=== PATIENT | female | born 1945 | race Caucasian/White ===

== ENCOUNTER 2017-11-12 07:59 | Outpatient (CLI) | payer MEDICARE ==
--- NOTE | 2017-11-12 10:57 | MRI ---
MRI LEFT HIP WITHOUT CONTRAST: INDICATIONS: History of left hip pain. FINDINGS: There is a near complete full-thickness tear of the left gluteus medius. The anterior mid segment of the tendon is completely torn. The very posterior aspect of the tendon remains intact. There is a partial thickness articular surface tear involving the posterior left gluteus medius tendo n, near the insertion. There is fluid within the sub-gluteus minimus and sub-gluteus medius trochant iris bursae. The rectus femoris and left hamstring origin appears within normal limits. No iliopsoas bursitis is evident. No gross labral tear is demonstrated. No definite paralabral cyst is identified. No joint effusion is evident. No acute fracture is demonstrated. There is mild degenerative change of the s ymphysis pubis. There are left SI joint arthrodesis screws in place. No enlarged lymph nodes are ev ident. There are scattered diverticula involving the colon. There is moderate left gluteus minimus tendinosis. IMPRESSION: 1. Near complete tear of the left gluteus minimus tendon with the posterior aspects of the left glut eus minimus tendon remaining intact. Ninety percent of the tendon is completely torn. 2. Partial thickness articular surface tear involving the posterior gluteus medius near the insertio n. 3. Mild left trochanteric bursitis. 4. Left sacroiliac joint arthrodesis. 5. Colonic diverticulosis. POS: [facility]
== END 2017-11-12 08:00 | disposition home or self-care (01) ==
LOC: SCSMRI 07:59
PROVIDERS: ATTEND Family Medicine
DX: M25.552 Pain in left hip (principal); M70.62 Trochanteric bursitis, left hip; S76.012A Strain of muscle, fascia and tendon of left hip, initial encounter; Z98.1 Arthrodesis status

== ENCOUNTER 2018-03-17 10:58 | Outpatient (CLI) | payer MEDICARE ==
[2018-03-17 12:10] LABS: #Lymphocytes 1.5 thou/uL (1.20-3.40); #Monocytes 0.6 thou/uL (0.11-0.59); #Neutrophils 3.7 thou/uL (1.40-6.50); %Basophils 0.6 % (0.0-1.0); %Eosinophils 0.6 % (0.0-10.0); %Lymphocytes 26.1 % (21.0-51.0); %Monocytes 9.7 % (0.0-10.0); %Neutrophils 63.1 % (42.0-75.0); Hemoglobin 13.1 g/dL (12.0-16.0); Mean Corpuscular HGB CONC 32.1 g/dL (32.0-36.0); Mean Corpuscular Hemoglobin 26.4 pg (27.0-31.0); Mean Corpuscular Volume 82.1 fL (78.0-98.0); Mean Platelet Volume 6.9 fL (7.4-10.4); Platelet Count 364 thou/uL (130-400); RBC Distribution Width 15.3 % (11.5-14.5); Red Blood Cell (RBC) Count 4.98 mill/uL (4.20-5.40); White Blood Cell (WBC) Count 5.9 thou/uL (4.8-10.8)
[2018-03-17 12:33] LABS: ALT (SGPT) 16 U/L (8-55); AST (SGOT) 18 U/L (5-34); Albumin 4.2 g/dL (3.4-4.8); Alkaline Phosphatase 67 U/L (40-150); Anion Gap 13 mmol/L (10-20); BUN (Urea Nitrogen) 16 mg/dL (9.8-20.1); Bilirubin, Total 0.5 mg/dL (0.2-1.2); Calc. Creatinine Clearance 0 mL/min (70-130); Carbon Dioxide 25 mmol/L (23-31); Chloride 105 mmol/L (98-107); Estimated GFR-MDRD 49; Globulin 2.9 g/dL (2.4-3.5); Glucose 107 mg/dL (83-110); Potassium 4.7 mmol/L (3.5-5.1); Protein, Total 7.1 g/dL (6.0-8.3); Sodium 138 mmol/L (136-145)
--- NOTE | 2018-03-17 13:20 | RAD ---
TWO VIEW CHEST: Comparison: 06-05-10 Clinical history: Pre-operative evaluation FINDINGS: There is no evidence of consolidation or effusion. Cardiac silhouette is normal in size. No free air beneath the hemidiaphragms. Osseous degenerative change is present. IMPRESSION: No focal consolidation. POS: [facility]
== END 2018-03-17 10:59 | disposition home or self-care (01) ==
LOC: LABBT 10:58
PROVIDERS: ATTEND Specialist
DX: Z01.818 Encounter for other preprocedural examination (principal); C50.211 Malignant neoplasm of upper-inner quadrant of right female breast; Z17.0 Estrogen receptor positive status [ER+]; Z98.84 Bariatric surgery status
CPT/HCPCS: 71046; 80053; 85025

== ENCOUNTER 2018-03-20 06:48 | Day surgery (SDC) | payer MEDICARE ==
--- NOTE | 2018-03-17 10:59 | HP ---
HISTORY OF PRESENT ILLNESS: Vi Aaron is a 73-year-old female who lives in [place], [facility], para 2 without a significant family history of a breast cancer, had her first 22 y ears of age, second 24 years of age. She has an aunt that has had breast cancer, but no im mediate family members. Self-breast examination is unremarkable. She obtains yearly mammograms and was found to have a 0.6 to 1 cm lesion, 2 o'clock radian right breast for which she underwent an imag e-guided biopsy revealing infiltrating ductal carcinoma, ER/AZ positive, HER-2 negative. She was see n Dr. Arzola and reports today for counseling regarding definitive surgical attention. PAST MEDICAL HISTORY: Diabetes mellitus type 2, resolved after successful weight loss after bariatri c surgery; elevated cholesterol in 1983 which improved with successful weight loss after bariatric dangelo rgery. PAST SURGICAL HISTORY: Hip replacement in 2017, SI joint fusion in 2017, laminectomy in 2014, ezequiel ctomy in 2013, laparoscopic adjustable band placed by Dr. Ceja, laparoscopic sleeve gastrectomy in [address] Valente, cholecystectomy, hysterectomy, total abdominal without oophorectomy, t onsillectomy in the past, colonoscopy is up to date. The patient had a chemical cardiac stress test that was negative in 12/2017. EKG was normal. She was to follow up with Dr. Moisés cardona. REVIEW OF SYSTEMS: Ten-point noncontributory. She has chronic hip and back pain, limiting her ambul ation. She takes NSAIDs for that. Note, Physician [place] diagnostic mammograms and right mammography spot compression 02/27/2018 and dangelo bsequent biopsy invasive ductal cell carcinoma at 2 o'clock radian 4 cm from the nipple. TOBACCO: None. ALCOHOL: None. MEDICATIONS: Boniva, . ALLERGIES: SULFA and STATINS, causing joint muscle pains. PHYSICAL EXAMINATION: VITAL SIGNS: Weight 188 pounds, height 64 inches, BMI of 31, blood pressure 180/93, pulse 81, temper ature 96.6 degrees. HEAD, EYES, EARS, NOSE AND THROAT: Unremarkable. LUNGS: Clear to auscultation. CARDIAC: Regular rate and rhythm without murmur or gallop. ABDOMEN: Soft, nontender, no masses. BREASTS: Axilla without lymphadenopathy. Both breasts visually normal, palpable normal. No palpabl e abnormalities. Nipple and areolar normal. EXTREMITIES: Unremarkable. No ankle edema, palpable pulses. ASSESSMENT: Infiltrating ductal carcinoma, 6 mm by ultrasound, 1 cm by mammogram, spiculated borders , infiltrating ductal carcinoma by image-guided biopsy, ER/AZ positive, HER-2 negative. PLAN: I have discussed with her treatment options and she desires breast preservation. We will plan lymphoscintigraphy, mammographic needle localization and then to the operating room for mammographic ally needle localized wide local excision/partial mastectomy/tylectomy right breast medial breast les ion 2 o'clock and sentinel node biopsy with Lymphazurin blue. She understands risks and benefits of the procedure and consents.
[2018-03-17 11:23] VITALS: BMI 31.8
[2018-03-20] MEDS ORDERED: CEFAZOLIN/Water 2 GM/20 ML SYRINGE ONE (09:56)
--- NOTE | 2018-03-20 10:50 | NM ---
NUCLEAR MEDICINE LYMPHOSCINTIGRAPHY: History: Right breast cancer of the upper/inner aspect of the right female breast. Technique: A right breast lymphoscintigraphy was performed after injecting 0.413 mCi Technetium 99M f iltered sulfur-colloid in a periareolar fashion in the right breast. FINDINGS: Uptake is seen surrounding the nipple consistent with injection site. There is uptake in a single axi llary lymph node consistent with an sentinel lymph node. IMPRESSION: Single right axillary sentinel lymph node. POS: [facility]
[2018-03-20] MEDS ORDERED: Bupivacaine/Epinephrine 0.25% 30 ML VIAL ONE ×2 (10:51→10:56)
[2018-03-20] MEDS ORDERED: Lidocaine 2% PF 5 ML VIAL ONE (10:51)
[2018-03-20] MEDS ORDERED: Fentanyl 100 MCG/2 ML VIAL ONE ×2 (10:57→13:09)
[2018-03-20] MEDS ORDERED: Isosulfan Blue 50 MG/5 ML VIAL ONE (11:54)
[2018-03-20] MEDS ORDERED: PROPOFOL 200 MG/20 ML VIAL ONE (13:24)
[2018-03-20] MEDS ORDERED: Ondansetron PF 4 MG/2 ML Vial ONE (13:24)
[2018-03-20] MEDS ORDERED: Dexamethasone 20 MG/5 ML VIAL ONE (13:24)
[2018-03-20] MEDS ORDERED: Lidocaine 1% PF 5 ML VIAL ONE (13:24)
[2018-03-20] MEDS ORDERED: Metoclopramide HCl 10 MG/2 ML VIAL ONE (13:24)
--- NOTE | 2018-03-20 16:20 | MMO ---
PROCEDURE NOTE: Date: 03/20/18 PREPROCEDURE DIAGNOSIS: Right breast cancer in the lower inner aspect of the right breast. PROCEDURE: 1. Stereotactic biopsy of right breast clip. 2. Specimen radiograph. BODY SHOP MECHANIC: Dr. Gonzalez. COMPLICATIONS: None. ANESTHESIA: 5 mL buffered 1% lidocaine. TECHNIQUE: Prior to the procedure, the risks and benefits of a needle localization of the right breast biopsy cl ip were explained to the patient and she consented fully to the procedure. Approach from medial was performed. The biopsy clip was localized with a localization grid. The breas t was prepped and draped in the usual sterile fashion. Lidocaine was used to anesthetize the skin and soft tissues down towards the biopsy clip. A 5 cm [place] needle was then placed perpendicular to the grid, into the location of the clip. This wa s confirmed in good position on the ML view. The patient then had an orthogonal projection showing th e needle deep to the biopsy clip. The needle and wire were withdrawn and redeployed. This was immedia tely adjacent to the biopsy clip. The needle and wire were then secured to the patient and she was sent to day surgery for eventual jeanine gical excision. A specimen radiograph was performed, which showed the biopsy clip in the center of the surgical speci men. The needle had been removed. The wire was still in place. IMPRESSION: Status post successful needle localization of right breast biopsy clip. POS: [facility]
--- NOTE | 2018-05-20 19:39 | OP ---
DATE OF PROCEDURE: 03/20/2018 PREOPERATIVE DIAGNOSIS: Right breast cancer, infiltrating ductal carcinoma, ER/OR positive, HER2 negative, 0.61 cm lesion 2 o'clock radian right breast by ultrasound criteria, status post image-guided biopsy for breast preservation. PROCEDURE PERFORMED: Mammographically needle localized wide local excision (partial mastectomy/tylectomy) of right breast cancer, median 2 o'clock radian right breast deep with sentinel node biopsy and Lymphazurin blue injection. [place] node biopsy, touch prep negative. ANESTHESIA: General. DESCRIPTION OF PROCEDURE: The patient was taken initially to lymphoscintigraphy, where sentinel node was identified, right axilla. She was then taken to ultrasound/mammography for needle localization. She was then taken to the operating room, where under general anesthesia, periareolar medial injection of Lymphazurin blue performed after alcohol prep. Incision was made around the areolar border and the localizing wire, dissected free, brought into this wound, and a core of breast tissue dissected free from around the localized area for wide local excision, marking margins appropriate superior, inferior, medial, lateral, anterior, posterior with different colored sutures and lengths. This was labeled for pathology assessment, identification. Hemostasis was gained with the cautery. Wound was approximated by approximating subcutaneous tissues with 3-0 Monocryl, skin with subdermal 4-0 Monocryl, and [place] glue applied. Biopsy cavity filled with a mixture of 0.25% Marcaine with epinephrine 60 mL mixed with 2% Xylocaine 10 mL. Some of the mixture left for sentinel node biopsy, where after Lymphazurin blue had been injected and the breast massaged, an incision was made in the axilla, carrying down through skin and subcutaneous tissue to the deep fascia, identifying the deep sentinel node stained blue and with increased counts by the Neoprobe. This node was negative for metastatic cancer. Good hemostasis was obtained with cautery. Subcutaneous tissue was approximated with 3-0 Monocryl, skin with subdermal 4-0 Monocryl. Job ID: [id number]
== END 2018-03-20 14:15 | disposition home or self-care (01) ==
LOC: SDC 06:48
PROVIDERS: ATTEND Specialist
PROC: 0HBT0ZZ Excision of Right Breast, Open Approach (ICD-10-PCS; principal; 2018-03-20)
PROC: 07B50ZX Excision of Right Axillary Lymphatic, Open Approach, Diagnostic (ICD-10-PCS; 2018-03-20)
DX: C50.211 Malignant neoplasm of upper-inner quadrant of right female breast (principal); E11.9 Type 2 diabetes mellitus without complications; Z98.84 Bariatric surgery status; Z96.649 Presence of unspecified artificial hip joint; Z90.49 Acquired absence of other specified parts of digestive tract; Z90.710 Acquired absence of both cervix and uterus; Z90.89 Acquired absence of other organs; Z88.2 Allergy status to sulfonamides; Z88.8 Allergy status to other drugs, medicaments and biological substances; Z88.1 Allergy status to other antibiotic agents; Z91.09 Other allergy status, other than to drugs and biological substances; Z79.899 Other long term (current) drug therapy; Z98.890 Other specified postprocedural states
CPT/HCPCS: 19281; 19301; 38525; 38900; 76098; 78195; 88307; 88333; 88334; 88342; 96374; A9541; Q9968; J1100; J2001; J2405; J2704; J2765; J3010

== ENCOUNTER 2018-04-13 10:22 | Inpatient (IN) | payer MEDICARE ==
--- NOTE | 2018-04-13 09:26 | HP ---
HISTORY OF PRESENT ILLNESS: Ms. Vi Aaron is a 73-year-old female status post wide local excis ion on 03/20/2018, sentinel node biopsy for grade 2 T1c, N0, M0, ER/KS positive, HER-2 negative, inva sive ductal cell carcinoma, grade I in situ, ductal carcinoma with 0 of 1 involved lymph nodes (senti silas node biopsy). She developed a hematoma in the right upper breast and has developed drainage from the wound. Plan today is to pulse irrigate this wound, debride the skin edges, wash this out and cl ose this. She is scheduled for radiation therapy next week, which will have to be postponed. There is no evidence of infection. She initially has suffered drainage, but the times I see her this abhishekni gunnar, the wound is open. She has been n.p.o. Please see her recent history and physical for details o f her past history. PHYSICAL EXAMINATION: VITAL SIGNS: 183 pounds, 64 inches, 153/79, 98 heart rate, 97.3 degrees. HEENT: Unremarkable. LUNGS: Clear to auscultation. CARDIAC: Regular rate and rhythm without murmur or gallop. ABDOMEN: Soft, nontender. BREAST: Right breast wound. Superior areolar border open wound with draining hematoma. No evidence of infection. ASSESSMENT AND PLAN: Hematoma in right breast with erosion and dehiscence of wound. We will plan fo r washout and debridement and closure as an outpatient, IV sedation, local anesthesia.
[2018-04-13] MEDS ORDERED: Ketorolac Tromethamine 30 MG/ML VIAL ONE (10:51)
[2018-04-13] MEDS ORDERED: CEFAZOLIN 2 GM/50 ML BAG ONE (10:51)
[2018-04-13] MEDS ORDERED: ISOVUE-370 76%-LOCM 1 ML ONE (11:02)
[2018-04-13] MEDS ORDERED: Iopamidol 370 76% 50 ML VIAL FS ONE (11:02)
[2018-04-13] MEDS ORDERED: Fentanyl 100 MCG/2 ML VIAL ONE (12:37)
[2018-04-13] MEDS ORDERED: Lidocaine 1% PF 5 ML VIAL ONE ×2 (12:39→13:55)
[2018-04-13] MEDS ORDERED: Bupivacaine HCl 0.5%/Epinephrine 1:200,000/PF 30 ml Vial ONE (12:39)
--- NOTE | 2018-04-13 13:27 | OP ---
DATE OF PROCEDURE: 04/13/2018 PREOPERATIVE DIAGNOSIS: Right breast cancer, status post wide local excision, now with open wound fr om eroding hematoma in need of debridement, washout. POSTOPERATIVE DIAGNOSIS: Right breast cancer, status post wide local excision, now with open wound f rom eroding hematoma in need of debridement, washout. PROCEDURE PERFORMED: Debridement of right breast skin and subcutaneous tissue sharply excisional wit h pulse irrigation and closure with 0.25 inch Tequila drain. SURGEON: Dr. Jose Eduardo Connell. ANESTHESIA: General. DESCRIPTION OF PROCEDURE: The patient was taken to the operating room where under general anesthesia , the right breast was prepared with Betadine, draped in routine fashion. The thinned out skin edges were debrided sharply, gaining hemostasis with the cautery. Pulse irrigation used to wash the right breast hematoma out. Good hemostasis noted. A 0.25 inch Tequila drain placed in the inferior media l stab incision and secured with 3-0 nylon suture and tailored to length. Drain was left in the sharmaine st cavity. Good hemostasis noted. Subcutaneous tissues approximated with 3-0 Monocryl, skin with dangelo bdermal 4-0 Monocryl. DermaGlue and sterile dressings applied. Local anesthetic mixture 0.5% Marcai ne with epinephrine, 30 mL, mixed with 2% Xylocaine, 10 mL infiltrated into skin and subcutaneous tis zora for postoperative pain control. Patient tolerated the procedure well.
[2018-04-13] MEDS ORDERED: Ondansetron PF 4 MG/2 ML Vial ONE (13:55)
[2018-04-13] MEDS ORDERED: PROPOFOL 200 MG/20 ML VIAL ONE (13:55)
[2018-04-13] MEDS ORDERED: Morphine 4 MG/ML VIAL ONE (14:26)
[2018-04-13] MEDS ORDERED: Lactated Ringer's 1,000 ML IV SCH (15:15)
[2018-04-13 15:47] LABS: CKMB 0.6 ng/mL (0-6.6); Troponin I Less than 0.010 ng/mL (< 0.028)
[2018-04-13] MEDS ORDERED: traMADol HCl 50 MG TAB PO PRN (18:24)
[2018-04-13 18:25] VITALS: BMI 31.8
[2018-04-13] MEDS ORDERED: Acetaminophen 500 MG TAB PO PRN (18:25)
[2018-04-13] MEDS ORDERED: Non-Formulary Item 1 EACH (Ibandronate Sodium [Ibandronate Sodium] 150 MG) PO SCH (18:30)
[2018-04-13 18:53] LABS: #Lymphocytes 0.8 thou/uL (1.20-3.40); #Monocytes 0.7 thou/uL (0.11-0.59); #Neutrophils 5.3 thou/uL (1.40-6.50); %Basophils 0.5 % (0.0-1.0); %Eosinophils 0.2 % (0.0-10.0); %Lymphocytes 12.1 % (21.0-51.0); %Monocytes 10.4 % (0.0-10.0); %Neutrophils 76.9 % (42.0-75.0); Hemoglobin 10.6 g/dL (12.0-16.0); Mean Corpuscular HGB CONC 32.2 g/dL (32.0-36.0); Mean Corpuscular Hemoglobin 26.4 pg (27.0-31.0); Mean Platelet Volume 6.6 fL (7.4-10.4); Platelet Count 313 thou/uL (130-400); RBC Distribution Width 13.8 % (11.5-14.5); Red Blood Cell (RBC) Count 4.02 mill/uL (4.20-5.40); White Blood Cell (WBC) Count 6.9 thou/uL (4.8-10.8)
[2018-04-13 19:20] LABS: ALT (SGPT) 145 U/L (8-55); AST (SGOT) 276 U/L (5-34); Albumin 3.6 g/dL (3.4-4.8); Alkaline Phosphatase 206 U/L (40-150); Anion Gap 10 mmol/L (10-20); BUN (Urea Nitrogen) 15 mg/dL (9.8-20.1); Bilirubin, Total 0.6 mg/dL (0.2-1.2); Calc. Creatinine Clearance 64 mL/min (70-130); Calcium 9.3 mg/dL (7.8-10.44); Carbon Dioxide 26 mmol/L (23-31); Chloride 101 mmol/L (98-107); Estimated GFR-MDRD 53; Glucose 121 mg/dL (83-110); Potassium 3.9 mmol/L (3.5-5.1); Protein, Total 6.6 g/dL (6.0-8.3); Sodium 133 mmol/L (136-145)
[2018-04-13 19:25] LABS: CKMB 0.7 ng/mL (0-6.6); Troponin I Less than 0.010 ng/mL (< 0.028)
--- NOTE | 2018-04-13 19:41 | RAD ---
PORTABLE CHEST: History: Dyspnea. Comparison: 03-17-18 FINDINGS: There is linear opacity in the left midlung consistent with atelectasis or streaky infiltrate. This i s a new finding. Lung [place] are otherwise clear and unchanged. There is scoliotic curvature of the thoracic spine aga in noted. Heart size is upper normal and stable. IMPRESSION: New linear density in the left midlung field suggesting atelectasis or streaky infiltrate. POS: [facility]
--- NOTE | 2018-04-13 19:59 | CT ---
CT ABDOMEN AND PELVIS WITH IV CONTRAST: Technique: Multiple contiguous axial images were obtained of the abdomen and pelvis with IV enhanceme nt. Indication: Abdominal pain. Epigastric pain. FINDINGS: The lung bases appear clear with mild stranding. There is a moderate sized fixed diaphragmatic hernia . Liver, spleen, and pancreas unremarkable. Surgical clips seen along the stomach wall suggesting prior gastric type procedure. Adrenal glands unremarkable. Kidneys show no evidence of hydronephrosis. There is a 7 mm low density lesion in the superolateral c ortex of the left kidney which is indeterminate on this study. Densities show evidence of mild enhanc ement and this cannot be simplified as a simple cyst. This will need follow up. Urinary bladder is partially distended and unremarkable. The bladder is obscured by artifact from a l eft hip prosthesis. Small bowel loops are unremarkable. Diverticulosis throughout the entire colon. No definite CT evidence of diverticulosis. Aorta normal caliber. No adenopathy apparent. IMPRESSION: 1. An indeterminate low density lesion from the superior left renal cortex measuring 7-8 mm. Recommen d a follow up CT abdomen in 6 months to evaluate this small indeterminate lesion which shows evidence of mild enhancement. Small neoplasm cannot be excluded. 2. Fixed diaphragmatic hernia with post op changing volume of stomach. 3. Diffuse diverticulosis of the colon without definite evidence of diverticulitis. Code T POS: [facility]
[2018-04-13] MEDS: Lactated Ringer's 1,000 ML IV SCH ×2 (20:48→23:12)
[2018-04-13] MEDS: Pantoprazole 40 MG VIAL IVP SCH (21:29)
[2018-04-13] MEDS: Calcium Carbonate 500 MG ChewTAB PO SCH (21:29)
[2018-04-14 04:25] LABS: #Eosinphils 0.1 thou/uL (0.0-0.7); #Lymphocytes 1.1 thou/uL (1.20-3.40); #Monocytes 0.7 thou/uL (0.11-0.59); #Neutrophils 3.7 thou/uL (1.40-6.50); %Basophils 0.5 % (0.0-1.0); %Eosinophils 0.9 % (0.0-10.0); %Lymphocytes 19.3 % (21.0-51.0); %Monocytes 11.8 % (0.0-10.0); %Neutrophils 67.4 % (42.0-75.0); Hemoglobin 9.7 g/dL (12.0-16.0); Mean Corpuscular HGB CONC 32.3 g/dL (32.0-36.0); Mean Corpuscular Hemoglobin 26.5 pg (27.0-31.0); Mean Corpuscular Volume 81.9 fL (78.0-98.0); Mean Platelet Volume 7.1 fL (7.4-10.4); Platelet Count 300 thou/uL (130-400); RBC Distribution Width 13.9 % (11.5-14.5); Red Blood Cell (RBC) Count 3.66 mill/uL (4.20-5.40); White Blood Cell (WBC) Count 5.5 thou/uL (4.8-10.8)
[2018-04-14] MEDS: Lactated Ringer's 1,000 ML IV SCH (05:47)
[2018-04-14 07:22] VITALS: BP 160/82; TEMP 98.3
[2018-04-14] MEDS: Calcium Carbonate 500 MG ChewTAB PO SCH (08:18)
[2018-04-14] MEDS: Pantoprazole 40 MG VIAL IVP SCH (08:19)
--- NOTE | 2018-04-14 08:46 | PRG ---
DATE OF SERVICE: 04/14/2018 SUBJECTIVE: Ms. Aaron is doing well today. She has tolerated her diet. She denies having any ab dominal pain. PHYSICAL EXAMINATION: VITAL SIGNS: Her vital signs remained stable, 98.3 degrees, 86, pulse 160/82. Yesterday postoperatively she had an episode of epigastric pain, back radiation and hypotension. Her hemoglobin remained stable at 10.6 yesterday, 9.7 today, her white count is normal. Basic metabo lic profile was normal. CAT scan of her abdomen and pelvis obtained yesterday revealed left renal de nsity. Follow up 6 months recommended. Otherwise, no other significant findings except for postoper ative sleeve gastrectomy changes. LUNGS: Clear to auscultation. CARDIAC: Regular rate and rhythm without murmur or gallop. ABDOMEN: Soft, nontender. BREAST: Her wound right breast is healthy. No problems. A [place] drain is present and not having much drainage. At this point, the patient is stable for discharge home. She can follow up in my office for an appoi ntment next week.
[2018-04-14] MEDS ORDERED: Cyanocobalamin (Vitamin B-12) 1,000 MCG TAB PO SCH (09:00)
[2018-04-14] MEDS ORDERED: Multivitamin W/ Minerals 1 TAB PO SCH (09:00)
[2018-04-14] MEDS ORDERED: BIOTIN 2500 MCG PO SCH (09:00)
--- NOTE | 2018-04-14 11:38 | DIS ---
DATE OF ADMISSION: 04/13/2018 DATE OF DISCHARGE: 04/14/2018 DISCHARGE DIAGNOSES: 1. Breakdown right breast wound, status post T1 N0 M0 right breast cancer, upper right breast wide l ocal excision with hematoma developing, eroded the skin, creating an open wound. 2. Postoperative hypotension, epigastric pain, back radiation, etiology uncertain. PPIs administere d. CT scan of abdomen and pelvis obtained revealing a left renal density too small to characterize. Fol low up in 6 months recommended. She was hospitalized overnight, observed in Intermediate Care area a nd remained stable with normal blood pressure, heart rate, tolerated her diet and discharged home tod ay to resume her home medications.
== END 2018-04-14 11:25 | disposition home or self-care (01) | DRG 572 ==
LOC: SDC 10:22 → IMCU/EMU 17:34
PROVIDERS: ADMIT Specialist; ATTEND Specialist
PROC: 0JB60ZZ Excision of Chest Subcutaneous Tissue and Fascia, Open Approach (ICD-10-PCS; principal; 2018-04-13)
DX: S20.01XA Contusion of right breast, initial encounter (principal); C50.911 Malignant neoplasm of unspecified site of right female breast
CPT/HCPCS: 36415; 71045; 74177; 80053; 82553; 83690; 84484; 85025; 93005; 93010; 96374; C9113; J0131; J0670; J1885; J2001; J2270; J2405; J2704; J3010

== ENCOUNTER 2018-06-22 08:08 | Outpatient (CLI) | payer MEDICARE ==
--- NOTE | 2018-06-22 11:54 | MRI ---
MRI OF THE LUMBAR SPINE WITH AND WITHOUT CONTRAST: INDICATION: History of osteoarthritis of the spine with radiculopathy and multiple back surgeries. CONTRAST: 17 cc of MultiHance. COMPARISON: Prior examination from [facility] dated 06/24/2014. FINDINGS: There are postprocedural changes of laminectomies from L3 through S1. There has been interval placem ent of a left SI joint arthrodesis screws. The anterolisthesis of L4 on L5 is stable. At L5-S1, there is a broad-based bulge with facet hypertrophy without appreciable central canal or ne ural foraminal narrowing. At l4-5, there is a broad-based pseudobulge with facet hypertrophy and grade I anterolisthesis causin g mild neural foraminal encroachment which is stable. At L3-4, there is a broad-based bulge with facet hypertrophy inducing some mild residual central birdie l stenosis even with the presence of laminectomies. The facet hypertrophy and broad-based bulge rasta percy moderate left neural foraminal narrowing. There is mild right neural foraminal narrowing present . This is stable to the prior exam. At L2-3, there is some facet osteoarthrosis with mild retrolisthesis of L2 and L3 which appears stabl e. There has been an interval laminectomy from the prior examination in 2014. Previously seen asymm etric to the left broad-based disk bulge has been removed. There is improvement in the lateral reces s narrowing. There is improvement in the central canal narrowing. The facet hypertrophy and broad-ba sed disk bulge at this level induces moderate to severe left neural foraminal narrowing due to hypert rophy of the facet joint. The neural foraminal narrowing induced by the asymmetric to the left disk bulge has reduced; however, the facet hypertrophy has worsened since the prior exam. At L1-2, there is a broad-based bulge without appreciable central canal or neural foraminal narrowing . At T12-L1, there is no appreciable central canal or neural foraminal narrowing. The postcontrast series demonstrated no definite areas of abnormal enhancement. IMPRESSION: 1. Postoperative change of the lumbar spine consistent with laminectomies at L2-3 through L5-S1. Th ere has been interval placement of arthrodesis screws involving the left sacroiliac joint consistent with sacroiliac joint arthrodesis. 2. Worsening moderate to severe left neural foraminal narrowing due to facet hypertrophy at L2-3. P reviously seen asymmetric left broad-based disk bulge inducing moderate to severe left lateral recess narrowing and left neural foraminal narrowing has been removed. 3. Stable mild neural foraminal narrowing at L4-5 with grade I anterolisthesis. 4. Stable moderate left and mild right neural foraminal narrowing at L3-4. POS: [facility]
== END 2018-06-22 08:09 | disposition home or self-care (01) ==
LOC: SCSMRI 08:08
PROVIDERS: ATTEND Family Medicine
DX: M47.26 Other spondylosis with radiculopathy, lumbar region (principal); M48.061 Spinal stenosis, lumbar region without neurogenic claudication; M51.16 Intervertebral disc disorders with radiculopathy, lumbar region; M43.16 Spondylolisthesis, lumbar region; Z98.1 Arthrodesis status
CPT/HCPCS: 72158; 82565

== ENCOUNTER 2018-10-12 07:32 | Outpatient (CLI) | payer MEDICARE ==
[2018-10-12] MEDS ORDERED: Iopamidol 370 76% 100 ML VIAL ONE (09:00)
--- NOTE | 2018-10-12 09:29 | CT ---
C ABDOMEN AND PELVIS WITH AND WITHOUT IV CONTRAST: HISTORY: Renal lesion. Followup for a kidney mass. History of breast cancer. COMPARISON: 04/13/2018. FINDINGS: The lung bases are unremarkable. Postop changes of gastric surgery are again seen. The liver, splee n, pancreas, and adrenal glands are normal. The patient is post cholecystectomy. No calculi are seen in the kidneys, ureters, or the urinary bladder. No hydroureteral nephrosis note d on either side. The 7-8 mm low-density lesion in the superolateral cortex of the left kidney is stable. There is nor mal contrast excretion into the ureters. No free air, free fluid, or lymphadenopathy is seen in the abdomen or pelvis. There is colonic diver ticulosis without diverticulitis. There are vascular calcifications without evidence of aneurysmal d ilatation of the abdominal aorta. There are postop changes and metallic hardware in the lower lumbar spine, SI joint, and a left total hip arthroplasty. The patient is post hysterectomy. IMPRESSION: 1. Stable subcentimeter left renal lesion since 04/13/2018. 2. Colonic diverticulosis. POS: [facility]
== END 2018-10-12 07:33 | disposition home or self-care (01) ==
LOC: SCSCT 07:32
PROVIDERS: ATTEND Family Medicine
DX: N28.9 Disorder of kidney and ureter, unspecified (principal); K57.30 Diverticulosis of large intestine without perforation or abscess without bleeding
CPT/HCPCS: 74178; 82565; Q9967

== ENCOUNTER 2021-03-19 09:51 | Outpatient (CLI) | payer MEDICARE | END 2021-03-19 09:52 | disposition home or self-care (01) | LOC: BICMAMMO 09:51 | PROVIDERS: ATTEND Family Medicine | DX: R92.8 Other abnormal and inconclusive findings on diagnostic imaging of breast (principal); Z85.3 Personal history of malignant neoplasm of breast | CPT/HCPCS: 77066; G0279 ==

== ENCOUNTER 2022-03-20 10:11 | Outpatient (CLI) | payer MEDICARE | END 2022-03-20 10:12 | disposition home or self-care (01) | LOC: BICMAMMO 10:11 | PROVIDERS: ATTEND Internal Medicine Hematology & Oncology | DX: C50.211 Malignant neoplasm of upper-inner quadrant of right female breast (principal); M81.8 Other osteoporosis without current pathological fracture; T36.6X5A Adverse effect of rifampicins, initial encounter | CPT/HCPCS: 77066; G0279 ==

== ENCOUNTER 2023-03-26 13:32 | Outpatient (CLI) | payer MEDICARE | END 2023-03-26 13:33 | disposition home or self-care (01) | LOC: BICMAMMO 13:32 | PROVIDERS: ATTEND Family Medicine | DX: Z08 Encounter for follow-up examination after completed treatment for malignant neoplasm (principal); Z85.3 Personal history of malignant neoplasm of breast | CPT/HCPCS: 77066; G0279 ==

== ENCOUNTER 2024-03-29 12:07 | Outpatient (CLI) | payer MEDICARE | END 2024-03-29 12:08 | disposition home or self-care (01) | LOC: BICMAMMO 12:07 | PROVIDERS: ATTEND Family Medicine | DX: Z12.31 Encounter for screening mammogram for malignant neoplasm of breast (principal); Z80.3 Family history of malignant neoplasm of breast; Z85.3 Personal history of malignant neoplasm of breast; Z91.89 Other specified personal risk factors, not elsewhere classified | CPT/HCPCS: 77063; 77067 ==

== ENCOUNTER 2025-04-04 13:22 | Outpatient (CLI) | payer MEDICARE | END 2025-04-04 13:23 | disposition home or self-care (01) | LOC: SCSBT 13:22 | PROVIDERS: ATTEND Internal Medicine Hematology & Oncology | DX: C50.211 Malignant neoplasm of upper-inner quadrant of right female breast (principal); M81.6 Localized osteoporosis [Lequesne]; T38.6X5A Adverse effect of antigonadotrophins, antiestrogens, antiandrogens, not elsewhere classified, initial encounter | CPT/HCPCS: 77080 ==